=== PATIENT | female | born 1935 | race Caucasian/White ===

== ENCOUNTER 2021-06-23 12:17 | Inpatient (IN) ==
[2021-06-23] MEDS ORDERED: NS 0.9% 1000 ml BAG 1,000 ML IV ONE (12:20)
[2021-06-23 12:49] LABS: ABS Eosinophils 0.2 10^3/ul (0-0.6); ABS Lymphocytes 1.1 10^3/ul (1.0-4.8); ABS Monocytes 0.6 10^3/ul (0-0.8); ABS Neutrophils 3.8 10^3/ul (1.5-7.7); Hematocrit 37 % (35-47); Hemoglobin 12.4 g/dL (12.0-16.0); Lymphocyte % 19.5 %; Mean Corpuscular HGB Conc 34 g/dL (31-36); Mean Corpuscular Hemoglobin 33 pg (27-31); Mean Corpuscular Volume 97 fL (80-97); Mean Platelet Volume 8.7 fL (7.4-10.4); Nucleated Red Blood Cells % 0.1; Platelet Count 245 10^3/uL (150-450); Red Blood Count 3.83 10^6 /uL (3.70-4.87); Red Cell Distribution Width 14 % (10-15); White Blood Count 5.8 10^3/uL (3.5-10.8)
[2021-06-23 12:58] LABS: Activated Partial Thrombo Time 27.4 seconds (26.0-38.0); INR 0.98 (0.86-1.15)
[2021-06-23 13:05] LABS: Troponin I 0.01 ng/mL (<0.03)
[2021-06-23 13:10] LABS: Albumin 4.1 g/dL (3.2-5.2); Albumin/Globulin Ratio 1.4 (1-3); Calcium 9.9 mg/dL (8.6-10.3); EGFR African American 77.8 (>60); EGFR Non-African American 64.3 (>60); HDL Cholesterol 65.5 mg/dL; Potassium 3.7 mmol/L (3.5-5.0); Total Bilirubin 0.8 mg/dL (0.2-1.0); Total Protein 7.1 g/dL (6.4-8.9)
[2021-06-23] MEDS ORDERED: levETIRAcetam 1000MG IVPREMIX 1,000 MG/100 ML BAG IVPB ONE (14:40)
[2021-06-23] MEDS ORDERED: Iodixanol (CONTRAST) 320 MG/ML 100 ML SDV IV ONE (14:45)
[2021-06-23 15:00] LABS: C Reactive Protein 4.59 mg/L (<8.01)
[2021-06-23 16:00] LABS: Urine Appearance Cloudy; Urine Bilirubin Negative (Negative); Urine Blood Negative (Negative); Urine Color Yellow; Urine Glucose Negative (Negative); Urine Ketones Trace (Negative); Urine Nitrite Negative (Negative); Urine Protein Negative (Negative); Urine Specific Gravity 1.016 (1.002-1.030); Urine Urobilinogen Negative (Negative)
[2021-06-23 16:07] LABS: Urine Amorphous Crystals Present (Absent); Urine Bacteria 1+ (Absent); Urine Red Blood Cell Trace(0-2/hpf) (Absent); Urine White Blood Cell 2+(11-20/hpf) (Absent)
[2021-06-23 16:16] LABS: TSH Ultra Thyroid Stim Horm 1.69 mcIU/mL (0.34-5.60)
[2021-06-23 16:18] LABS: Free T4 1.15 ng/dL (0.61-1.12)
[2021-06-23 16:27] LABS: Folate > 20.00 ng/mL (5.90-24.80)
[2021-06-23 16:28] LABS: Vitamin B12 636 pg/mL (180-914)
[2021-06-23] MEDS ORDERED: Enoxaparin 40 MG/0.4 ML SYR SUBCUT SCH (17:00)
[2021-06-23] MEDS: Carbidopa/Levodop 25/100 MG TAB PO SCH (17:34)
[2021-06-23] MEDS ORDERED: NITROFURANTOIN MONOHYD PO SCH (21:00)
[2021-06-23] MEDS ORDERED: M CRYST PO SCH (21:00)
[2021-06-23] MEDS: DROXIDOPA 100 MG PO SCH (21:46)
[2021-06-24 05:03] LABS: ABS Basophils 0.1 10^3/ul (0-0.2); ABS Eosinophils 0.2 10^3/ul (0-0.6); ABS Lymphocytes 0.9 10^3/ul (1.0-4.8); ABS Monocytes 0.5 10^3/ul (0-0.8); ABS Neutrophils 2.3 10^3/ul (1.5-7.7); Eosinophil % 6.1 %; Hematocrit 32 % (35-47); Hemoglobin 10.6 g/dL (12.0-16.0); Lymphocyte % 22.4 %; Mean Corpuscular HGB Conc 33 g/dL (31-36); Mean Corpuscular Hemoglobin 33 pg (27-31); Mean Corpuscular Volume 98 fL (80-97); Mean Platelet Volume 8.2 fL (7.4-10.4); Nucleated Red Blood Cells % 0.2; Platelet Count 218 10^3/uL (150-450); Red Blood Count 3.26 10^6 /uL (3.70-4.87); Red Cell Distribution Width 14 % (10-15); White Blood Count 3.9 10^3/uL (3.5-10.8)
[2021-06-24 05:18] LABS: Calcium 8.4 mg/dL (8.6-10.3); EGFR African American 88.7 (>60); EGFR Non-African American 73.3 (>60); Potassium 3.1 mmol/L (3.5-5.0)
[2021-06-24] MEDS: Carbidopa/Levodop 25/100 MG TAB PO SCH ×3 (05:26→21:32)
[2021-06-24] MEDS: DROXIDOPA 100 MG PO SCH ×3 (08:56→21:48)
[2021-06-24] MEDS ORDERED: Potassium Chlor 20 meq TAB.ER PO SCH (09:00)
[2021-06-24] MEDS ORDERED: Potassium Chlor 20 meq TAB.ER PO ONE (09:14)
[2021-06-24] MEDS: Potassium Chlor 20 meq TAB.ER PO SCH (09:56)
[2021-06-24] MEDS: KCL 20 MEQ/100 ML IVPREMIX 20 MEQ/100 ML BAG IV SCH ×3 (10:22→15:51)
[2021-06-24] MEDS ORDERED: Gadoteridol (CONTRAST) 279.3 MG/ML 10 ML IV ONE (17:52)
[2021-06-25 05:05] LABS: ABS Eosinophils 0.2 10^3/ul (0-0.6); ABS Lymphocytes 1.2 10^3/ul (1.0-4.8); ABS Monocytes 0.5 10^3/ul (0-0.8); ABS Neutrophils 2.3 10^3/ul (1.5-7.7); Eosinophil % 4.7 %; Hematocrit 34 % (35-47); Hemoglobin 11.1 g/dL (12.0-16.0); Lymphocyte % 27.7 %; Mean Corpuscular HGB Conc 33 g/dL (31-36); Mean Corpuscular Hemoglobin 32 pg (27-31); Mean Corpuscular Volume 97 fL (80-97); Mean Platelet Volume 8.1 fL (7.4-10.4); Platelet Count 226 10^3/uL (150-450); Red Blood Count 3.45 10^6 /uL (3.70-4.87); Red Cell Distribution Width 14 % (10-15); White Blood Count 4.3 10^3/uL (3.5-10.8)
[2021-06-25 05:18] LABS: Calcium 8.5 mg/dL (8.6-10.3); EGFR African American 92.9 (>60); EGFR Non-African American 76.8 (>60); Potassium 3.2 mmol/L (3.5-5.0)
[2021-06-25] MEDS: Carbidopa/Levodop 25/100 MG TAB PO SCH ×3 (05:51→21:19)
[2021-06-25] MEDS ORDERED: Potassium Chlor 20 meq TAB.ER PO ONE (08:33)
[2021-06-25] MEDS: Potassium Chlor 20 meq TAB.ER PO SCH (09:21)
[2021-06-25] MEDS: Aspirin EC 81 mg TAB.EC (enteric coated) PO SCH (09:21)
[2021-06-25] MEDS: DROXIDOPA 100 MG PO SCH ×3 (09:22→21:06)
[2021-06-25] MEDS ORDERED: Gadoteridol (CONTRAST) 279.3 MG/ML 10 ML IV ONE (16:23)
[2021-06-25] MEDS: levETIRAcetam LIQ 500 MG/5 ML UDC PO SCH (21:42)
[2021-06-26] MEDS: Carbidopa/Levodop 25/100 MG TAB PO SCH ×3 (05:00→21:24)
[2021-06-26 06:22] LABS: Calcium 8.9 mg/dL (8.6-10.3)
[2021-06-26 06:27] LABS: EGFR African American 70.9 (>60); EGFR Non-African American 58.6 (>60)
[2021-06-26] MEDS: DROXIDOPA 100 MG PO SCH ×3 (09:30→20:54)
[2021-06-26] MEDS: levETIRAcetam LIQ 500 MG/5 ML UDC PO SCH ×2 (10:18→10:27)
[2021-06-26] MEDS: Aspirin EC 81 mg TAB.EC (enteric coated) PO SCH (10:26)
[2021-06-26] MEDS: Potassium Chlor 20 meq TAB.ER PO SCH (10:26)
[2021-06-26] MEDS ORDERED: levETIRAcetam 500 MG IVPREMIX 500 MG/100 ML BAG IV ONE (10:27)
[2021-06-26] MEDS ORDERED: Valproic Acid IV 1,000 MG in NS 0.9% 100 ml BAG 100 ML IVPB ONE (11:27)
[2021-06-26] MEDS ORDERED: Polyethylene Glycol 3350 17 GM PACKET PO PRN (21:08)
[2021-06-26] MEDS: Senna TAB 8.6 mg TAB PO PRN (21:24)
[2021-06-27] MEDS: Carbidopa/Levodop 25/100 MG TAB PO SCH ×3 (05:34→20:57)
[2021-06-27] MEDS: Potassium Chlor 20 meq TAB.ER PO SCH (08:42)
[2021-06-27] MEDS: Aspirin EC 81 mg TAB.EC (enteric coated) PO SCH (08:50)
[2021-06-27] MEDS: DROXIDOPA 100 MG PO SCH ×3 (08:51→23:12)
[2021-06-27 14:15] LABS: Ceruloplasmin 22.4 mg/dL
[2021-06-27 16:35] LABS: Copper Level 0.83 mcg/mL (0.75-1.45)
[2021-06-27] MEDS: Senna TAB 8.6 mg TAB PO PRN (20:58)
[2021-06-28] MEDS: Carbidopa/Levodop 25/100 MG TAB PO SCH (04:46)
[2021-06-28] MEDS: Potassium Chlor 20 meq TAB.ER PO SCH (13:37)
[2021-06-28] MEDS: Aspirin EC 81 mg TAB.EC (enteric coated) PO SCH (13:38)
[2021-06-28] MEDS: DROXIDOPA 100 MG PO SCH ×2 (20:13→22:04)
[2021-06-29] MEDS: Potassium Chlor 20 meq TAB.ER PO SCH (08:18)
[2021-06-29] MEDS: Aspirin EC 81 mg TAB.EC (enteric coated) PO SCH ×2 (08:18→08:21)
[2021-06-30] MEDS: Aspirin EC 81 mg TAB.EC (enteric coated) PO SCH (08:08)
[2021-06-30] MEDS: Potassium Chlor 20 meq TAB.ER PO SCH (08:08)
[2021-06-30] MEDS ORDERED: NS 0.9% 500 ml BAG 500 ML IV ONE (13:46)
[2021-06-30] MEDS: Carbidopa/Levodop 25/100 MG TAB PO SCH ×2 (15:02→19:38)
[2021-07-01] MEDS: Potassium Chlor 20 meq TAB.ER PO SCH (08:02)
[2021-07-01] MEDS: Carbidopa/Levodop 25/100 MG TAB PO SCH ×3 (08:02→20:06)
[2021-07-01] MEDS: Aspirin EC 81 mg TAB.EC (enteric coated) PO SCH (08:02)
[2021-07-01 13:17] LABS: ABS Lymphocytes 0.3 10^3/ul (1.0-4.8); ABS Monocytes 0.7 10^3/ul (0-0.8); ABS Neutrophils 12.3 10^3/ul (1.5-7.7); Hematocrit 42 % (35-47); Hemoglobin 13.6 g/dL (12.0-16.0); Lymphocyte % 1.9 %; Mean Corpuscular HGB Conc 33 g/dL (31-36); Mean Corpuscular Hemoglobin 32 pg (27-31); Mean Corpuscular Volume 98 fL (80-97); Mean Platelet Volume 9.4 fL (7.4-10.4); Platelet Count 231 10^3/uL (150-450); Red Blood Count 4.27 10^6 /uL (3.70-4.87); Red Cell Distribution Width 15 % (10-15); White Blood Count 13.3 10^3/uL (3.5-10.8)
[2021-07-01 13:33] LABS: Calcium 9.5 mg/dL (8.6-10.3); EGFR African American 53.1 (>60); EGFR Non-African American 43.9 (>60); Potassium 4.5 mmol/L (3.5-5.0)
[2021-07-01] MEDS ORDERED: NS 0.9% 1000 ml BAG 1,000 ML IV SCH (16:30)
[2021-07-01] MEDS: cefTRIAXone 1 gm/50 mL NS BAG 1 GM/50 ML BAG IVPB SCH (18:05)
[2021-07-01] MEDS: metroNIDAZOLE IV 500 MG/100ML 500 MG/100 ML BAG IVPB SCH (20:06)
[2021-07-01 20:50] LABS: Urine Appearance Turbid; Urine Bilirubin Negative (Negative); Urine Blood 1+ (Negative); Urine Color Amber; Urine Glucose Negative (Negative); Urine Ketones Trace (Negative); Urine Nitrite Negative (Negative); Urine Protein 1+(30 mg/dL) (Negative); Urine Specific Gravity 1.026 (1.002-1.030); Urine Urobilinogen Negative (Negative)
[2021-07-01 20:54] LABS: Urine Bacteria 3+ (Absent); Urine Red Blood Cell 3+(>10/hpf) (Absent); Urine Squamous Epithelial Cell Present (Absent); Urine White Blood Cell 3+(>20/hpf) (Absent); Urine Yeast Present (Absent)
[2021-07-02] MEDS: metroNIDAZOLE IV 500 MG/100ML 500 MG/100 ML BAG IVPB SCH ×3 (02:16→22:15)
[2021-07-02 05:46] LABS: ABS Lymphocytes 0.6 10^3/ul (1.0-4.8); ABS Monocytes 0.4 10^3/ul (0-0.8); ABS Neutrophils 8.8 10^3/ul (1.5-7.7); Eosinophil % 0.3 %; Hematocrit 35 % (35-47); Hemoglobin 11.9 g/dL (12.0-16.0); Lymphocyte % 5.6 %; Mean Corpuscular HGB Conc 34 g/dL (31-36); Mean Corpuscular Hemoglobin 33 pg (27-31); Mean Corpuscular Volume 98 fL (80-97); Mean Platelet Volume 9.5 fL (7.4-10.4); Platelet Count 184 10^3/uL (150-450); Red Blood Count 3.62 10^6 /uL (3.70-4.87); Red Cell Distribution Width 15 % (10-15); White Blood Count 9.8 10^3/uL (3.5-10.8)
[2021-07-02 06:10] LABS: Calcium 8.2 mg/dL (8.6-10.3); EGFR African American 37.5 (>60); Magnesium 2.1 mg/dL (1.9-2.7); Potassium 3.9 mmol/L (3.5-5.0)
[2021-07-02] MEDS: Carbidopa/Levodop 25/100 MG TAB PO SCH ×3 (10:16→22:19)
[2021-07-02] MEDS: Aspirin EC 81 mg TAB.EC (enteric coated) PO SCH (10:16)
[2021-07-02] MEDS: Potassium Chlor 20 meq TAB.ER PO SCH (10:16)
[2021-07-02] MEDS: NS 0.9% 1000 ml BAG 1,000 ML IV SCH (10:19)
[2021-07-02] MEDS: cefTRIAXone 1 gm/50 mL NS BAG 1 GM/50 ML BAG IVPB SCH (18:02)
[2021-07-03] MEDS: metroNIDAZOLE IV 500 MG/100ML 500 MG/100 ML BAG IVPB SCH ×3 (04:01→18:07)
[2021-07-03] MEDS: NS 0.9% 1000 ml BAG 1,000 ML IV SCH (06:55)
[2021-07-03] MEDS: Aspirin EC 81 mg TAB.EC (enteric coated) PO SCH (11:48)
[2021-07-03] MEDS: Carbidopa/Levodop 25/100 MG TAB PO SCH ×3 (11:49→20:02)
[2021-07-03] MEDS: Potassium Chlor 20 meq TAB.ER PO SCH (11:49)
[2021-07-03] MEDS ORDERED: Ondansetron 4 mg VIAL 2 MG/ML 2 ml VIAL IV PRN (17:02)
[2021-07-03] MEDS ORDERED: Morphine 2 MG/ML SYRINGE IV PRN (17:02)
[2021-07-04] MEDS: Aspirin EC 81 mg TAB.EC (enteric coated) PO SCH (09:57)
[2021-07-04] MEDS: Carbidopa/Levodop 25/100 MG TAB PO SCH ×3 (09:58→21:18)
[2021-07-04] MEDS ORDERED: Morphine ORAL.SOLN 10 mg 2 mg/ml UDC 5 ml (10 mg) PO PRN (13:02)
[2021-07-04] MEDS: Vancomycin SOL ORALSYR 50 MG/ML ML PO SCH (21:18)
[2021-07-05] MEDS: Vancomycin SOL ORALSYR 50 MG/ML ML PO SCH ×4 (08:32→20:10)
[2021-07-05] MEDS: Carbidopa/Levodop 25/100 MG TAB PO SCH ×3 (08:32→20:10)
[2021-07-05] MEDS: Aspirin EC 81 mg TAB.EC (enteric coated) PO SCH (08:32)
[2021-07-06] MEDS: Carbidopa/Levodop 25/100 MG TAB PO SCH ×3 (13:09→21:05)
[2021-07-06] MEDS: Aspirin EC 81 mg TAB.EC (enteric coated) PO SCH (13:09)
[2021-07-06] MEDS: Vancomycin SOL ORALSYR 50 MG/ML ML PO SCH ×4 (13:09→21:05)
[2021-07-07] MEDS: Carbidopa/Levodop 25/100 MG TAB PO SCH ×3 (10:56→22:14)
[2021-07-07] MEDS: Aspirin EC 81 mg TAB.EC (enteric coated) PO SCH (10:56)
[2021-07-07] MEDS: Vancomycin SOL ORALSYR 50 MG/ML ML PO SCH ×4 (10:56→22:14)
[2021-07-07 11:21] VITALS: BP 121/73
[2021-07-08] MEDS: Aspirin EC 81 mg TAB.EC (enteric coated) PO SCH (09:55)
[2021-07-08] MEDS: Vancomycin SOL ORALSYR 50 MG/ML ML PO SCH (09:55)
[2021-07-08] MEDS: Carbidopa/Levodop 25/100 MG TAB PO SCH (09:56)
== END 2021-07-08 12:03 | disposition hospice, inpatient (51) | DRG 56 ==
LOC: ED 12:17 → MEDTELE 12:17 → SUATTDRO 06-25 09:15
PROVIDERS: ADMIT Internal Medicine; ATTEND Internal Medicine